=== PATIENT | male | born 1965 | race Caucasian/White ===

== ENCOUNTER 2021-10-04 18:41 | Inpatient (IN) | payer BC ==
[~2021-10-04] VITALS: Ht 190.5 cm; Wt 67.9 kg
[2021-10-04 19:18] LABS: BASOPHILS % (AUTO) 0.8 % (0-1); EOSINOPHILS # (AUTO) 0.2 X10'3 (0-0.9); EOSINOPHILS % (AUTO) 3.5 % (0-6); HEMATOCRIT 36.3 % (42.0-52.0); HEMOGLOBIN 12.3 g/dl (14.0-17.9); LYMPHOCYTES # (AUTO) 2.6 X10'3 (1.1-4.8); LYMPHOCYTES % (AUTO) 44.4 % (21-51); MEAN CORPUSCULAR VOLUME 96.9 FL (78-98); MEAN PLATELET VOLUME 7.7 FL (7.4-10.4); MONOCYTES # (AUTO) 0.4 X10'3 (0-0.9); MONOCYTES % (AUTO) 6.7 % (2-12); NEUTROPHILS # (AUTO) 2.6 X10'3 (1.8-7.7); NEUTROPHILS % (AUTO) 44.6 % (42-75); PLATELET COUNT 238 X10'3 (140-440); RED BLOOD COUNT 3.74 X10'6 (4.70-6.10); RED CELL DISTRIBUTION WIDTH 13.5 % (11.5-14.5); WHITE BLOOD COUNT 5.8 X10'3 (4.5-11.0)
[2021-10-04 19:33] LABS: ALANINE AMINOTRANSFERASE 34 U/L (12-78); ALBUMIN 3.9 G/DL (3.4-5.0); ALBUMIN/GLOBULIN RATIO 1.3 (1.1-1.5); ALKALINE PHOSPHATASE 43 IU/L (46-116); ANION GAP 14 (8-16); ASPARTATE AMINO TRANSFERASE 20 U/L (10-37); BILIRUBIN,TOTAL 0.8 MG/DL (0.1-1.0); BLOOD UREA NITROGEN 16 MG/DL (7-18); BUN/CREATININE RATIO 12.8 (5.4-32.0); CALCIUM 8.4 MG/DL (8.5-10.1); CHLORIDE 103 MMOL/L (99-107); CREATININE 1.25 MG/DL (0.60-1.10); GLUCOSE 174 MG/DL (70-104); LIPASE 153 U/L (73-393); POTASSIUM 3.7 MMOL/L (3.5-5.1); SODIUM 138 MMOL/L (135-145); eGFR 59 ML/MIN
[2021-10-04] MEDS ORDERED: iohexol 300mg/ml 100ml inj. ONE (20:34)
[2021-10-04] MEDS ORDERED: iohexol 350MG/ML 100ml bottle IV ONE (20:38)
[2021-10-04] MEDS ORDERED: morphine 4 MG/ML inj SYRINge IV ONE (21:10)
--- NOTE | 2021-10-04 22:38 | NUR ---
Tech sat patient up for COVID test and he had a syncopal episode, Dr. Pickett was advised and blood transfusion is being ordered.
[2021-10-04 22:48] LABS: BASOPHILS % (AUTO) 0.2 % (0-1); EOSINOPHILS % (AUTO) 0.1 % (0-6); HEMATOCRIT 30.3 % (42.0-52.0); HEMOGLOBIN 10.1 g/dl (14.0-17.9); LYMPHOCYTES # (AUTO) 1.2 X10'3 (1.1-4.8); LYMPHOCYTES % (AUTO) 6.5 % (21-51); MEAN CORPUSCULAR HEMOGLOBIN 32.3 PG (27.0-31.0); MEAN CORPUSCULAR HGB CONC 33.4 g/dL (33.0-36.5); MEAN CORPUSCULAR VOLUME 96.7 FL (78-98); MEAN PLATELET VOLUME 7.7 FL (7.4-10.4); MONOCYTES # (AUTO) 0.8 X10'3 (0-0.9); MONOCYTES % (AUTO) 4.4 % (2-12); NEUTROPHILS # (AUTO) 15.9 X10'3 (1.8-7.7); NEUTROPHILS % (AUTO) 88.8 % (42-75); PLATELET COUNT 183 X10'3 (140-440); RED BLOOD COUNT 3.13 X10'6 (4.70-6.10); RED CELL DISTRIBUTION WIDTH 13.5 % (11.5-14.5); WHITE BLOOD COUNT 17.8 X10'3 (4.5-11.0)
[2021-10-04 23:31] VITALS: BP 87/55
[2021-10-04 23:46] VITALS: BP 76/51
[2021-10-05] VITALS (26 sets, daily range): BP systolic 67–129; BP diastolic 43–85
[2021-10-05] MEDS ORDERED: tranexamic acid 100mg/ml inj. IV ONE (01:20)
[2021-10-05] MEDS ORDERED: ceFOXitin 2GM-NS 100mL ADDvant 100 ML IV ONE (01:20)
[2021-10-05] MEDS ORDERED: NORepinephrine 8 MG in NS 250 ML BAG (32 mcg/ml) IV ONE (01:23)
[2021-10-05] MEDS ORDERED: sevoflurane 250ml liquid IH ONE (01:23)
[2021-10-05] MEDS ORDERED: tranexamic acid 1gm/0.7% sal. 100 ML IV ONE (01:25)
--- NOTE | 2021-10-05 01:25 | NUR ---
Patient taken to the OR for an exploratory LAP per OR documentation. Patient off unit.
[2021-10-05] MEDS ORDERED: midazolam 1 mg/ML 2ml injection ONE (01:27)
[2021-10-05] MEDS ORDERED: fentaNYL /PF 50mcg/ml 5ml ampule ONE (01:27)
[2021-10-05] MEDS ORDERED: ePHEDrine 50MG/ML INJ. ONE (01:27)
[2021-10-05 01:37] LABS: APTT 24 SECONDS (22-32)
[2021-10-05] MEDS ORDERED: ceFOXitin 2GM-NS 50mL ADDVANT. 50 ML IV ONE (02:01)
[2021-10-05] MEDS ORDERED: morphine 4 MG/ML inj SYRINge IV PRN (02:25)
[2021-10-05] MEDS ORDERED: morphine 2 MG/ML inj. syringe IV PRN (02:25)
[2021-10-05] MEDS ORDERED: magnesium 4gm in 100ml NS 100 ML IV PRN (02:25)
[2021-10-05] MEDS ORDERED: magnesium hydroxide 30ml (MOM) UD suspension PO PRN (02:25)
[2021-10-05] MEDS ORDERED: acetaminophen 325mg tablet PO PRN ×2 (02:25)
[2021-10-05] MEDS ORDERED: ondansetron/PF 4mg/2ml inj IV PRN (02:25)
[2021-10-05] MEDS ORDERED: potassium Cl 20 mEq SR tablet PO PRN ×2 (02:25)
[2021-10-05] MEDS ORDERED: rocuronium 10mg/ml inj IV ONE ×2 (03:35)
[2021-10-05] MEDS ORDERED: propofol inj 20 ML IV ONE (03:36)
[2021-10-05] MEDS ORDERED: glycopyrrolate 0.2mg/ml inj ONE (03:36)
[2021-10-05] MEDS ORDERED: neostigmine methylsulfate 1 MG/ML 10ml vial ONE (03:36)
[2021-10-05] MEDS ORDERED: fentaNYL/PF 50MCG/1 ML 2ML syringe ONE (03:52)
[2021-10-05] MEDS ORDERED: HYDROmorph./NS 0.2 mg/ml CADD 100 ML IV SCH (04:00)
[2021-10-05] MEDS ORDERED: naloxone 0.4 mg/ml inj IV PRN (04:00)
[2021-10-05] MEDS ORDERED: potassium CL 20mEq in D5-1/2NS 1,000 ML IV SCH (04:00)
--- NOTE | 2021-10-05 04:15 | NUR ---
Received report from DASHBOARD DEVELOPER. Patients HR in 120s sinus tach, BP 105/60. Incision with ABD in place, mild serosanguineous drainage noted. Patient complaining of severe pain to abdomen. Bowel sounds auscultated. Will continue to monitor, will administer pain medication as ordered by MD.
[2021-10-05] MEDS: HYDROmorph./NS 0.2 mg/ml CADD 100 ML IV SCH ×7 (04:48→17:00)
--- NOTE | 2021-10-05 06:25 | NUR ---
Problems reprioritized. Patient report given, questions answered & plan of care reviewed with Usman Alba.
[2021-10-05] MEDS: NORepinephrine 8mg/ 250ml NS 250 ML IV SCH (06:35)
[2021-10-05 07:40] LABS: BASOPHILS % (AUTO) 0 % (0-1); EOSINOPHILS % (AUTO) 0.1 % (0-6); HEMATOCRIT 32.3 % (42.0-52.0); HEMOGLOBIN 10.9 g/dl (14.0-17.9); LYMPHOCYTES # (AUTO) 0.7 X10'3 (1.1-4.8); LYMPHOCYTES % (AUTO) 3.4 % (21-51); MEAN CORPUSCULAR HEMOGLOBIN 30.8 PG (27.0-31.0); MEAN CORPUSCULAR HGB CONC 33.9 g/dL (33.0-36.5); MEAN CORPUSCULAR VOLUME 90.8 FL (78-98); MONOCYTES # (AUTO) 1.7 X10'3 (0-0.9); MONOCYTES % (AUTO) 8.3 % (2-12); NEUTROPHILS % (AUTO) 88.2 % (42-75); PLATELET COUNT 185 X10'3 (140-440); RED BLOOD COUNT 3.55 X10'6 (4.70-6.10); RED CELL DISTRIBUTION WIDTH 15.7 % (11.5-14.5); WHITE BLOOD COUNT 20.4 X10'3 (4.5-11.0)
[2021-10-05 07:53] LABS: ALANINE AMINOTRANSFERASE 22 U/L (12-78); ALBUMIN 3.1 G/DL (3.4-5.0); ALBUMIN/GLOBULIN RATIO 1.7 (1.1-1.5); ANION GAP 10 (8-16); ASPARTATE AMINO TRANSFERASE 14 U/L (10-37); BILIRUBIN,TOTAL 1.2 MG/DL (0.1-1.0); BLOOD UREA NITROGEN 15 MG/DL (7-18); BUN/CREATININE RATIO 13.8 (5.4-32.0); CALCIUM 6.9 MG/DL (8.5-10.1); CHLORIDE 111 MMOL/L (99-107); CREATININE 1.09 MG/DL (0.60-1.10); GLUCOSE 235 MG/DL (70-104); POTASSIUM 5.8 MMOL/L (3.5-5.1); SODIUM 139 MMOL/L (135-145); TOTAL PROTEIN 4.9 G/DL (6.4-8.2); eGFR 69 ML/MIN
[2021-10-05 08:22] LABS: ALKALINE PHOSPHATASE 30 IU/L (46-116)
[2021-10-05] MEDS ORDERED: CALCIUM GLUC 1gm/50ml NACL,iso 50 ML IV ONE (08:25)
[2021-10-05] MEDS ORDERED: TURM538C PO (08:58)
[2021-10-05] MEDS: K and/or MAG REPLACEMENT MC SCH (08:58)
[2021-10-05] MEDS ORDERED: GARL100T PO (08:58)
[2021-10-05] MEDS ORDERED: ASCO500C17 PO (08:58)
[2021-10-05] MEDS ORDERED: CRAN500C4 PO (08:58)
[2021-10-05] MEDS ORDERED: ALBU8.5H17 INH (08:58)
[2021-10-05] MEDS ORDERED: LOSA100T57 PO (08:58)
[2021-10-05] MEDS ORDERED: CHOL100017 PO (08:58)
[2021-10-05] MEDS ORDERED: AMLO5TAB16 PO (08:58)
[2021-10-05] MEDS: ceFOXitin inj 1,000 MG in normal saline 100ml IV soln 100 ML IV SCH ×2 (09:16→15:45)
[2021-10-05 09:19] LABS: HEMOGLOBIN A1C 5.2 % (4.5-6.2)
[2021-10-05 09:21] LABS: MAGNESIUM 1.5 MG/DL (1.5-2.4)
[2021-10-05 10:04] LABS: ISTAT K 4.7 mmol/L (3.5-5.1)
[2021-10-05 10:05] LABS: ISTAT CREATININE 0.9 mg/dL (0.8-1.3); ISTAT IONIZED CALCIUM 1.11 mmol/L (1.03-1.32); POC BUN/CREATININE RATIO 16.7 (5.4-32.0)
[2021-10-05 10:06] LABS: ISTAT HGB 7.5 g/dl (14.0-18.0)
[2021-10-05] MEDS ORDERED: albuterol 2.5 MG/3 ML nebule NEB PRN (11:45)
--- NOTE | 2021-10-05 12:51 | NUR ---
1000- critical care rounds- CT with contrast to chest abdomen pelvis to reevaluate abscess/ persistent low grade fever. Change midodrine to PRN.
--- NOTE | 2021-10-05 12:53 | NUR ---
1130- Discussion between MD and nurse with patient regarding her wishes on further aggressive care, patient expressing herself through nodding of head. SABASnoaimee name, year, self. Shakes head no to wanting further aggressive care, wants the tube out (using hand signals of pulling tube), emphatically nods head when asked if wants the tube out even though it could lead to her . Nods head yes to, are you just tired of all of it. MD still wants CT of abdomen to just check on status of abscess.
[2021-10-05] MEDS: normal saline 1000ml 1,000 ML IV SCH ×2 (13:10→22:37)
--- NOTE | 2021-10-05 13:17 | NUR ---
1200- On way to CT patient expressing she doesnt want to have the test. Keeps pointing up to ceiling, shaking head no. After being placed on CT table, patient kept taking arms of straps, while going into CT tube, patient pulled arms out and was pounding on CT tube, pulling at the sides. Shook head no when asked if she would do the CT. CT cancelled, on way into elevator patient was grabbing over the side of the rails trying to get to elevator doors. Explained to her that we were going back up to her room. 1230- Upon arriving back to room, nursing had discussion with patient regarding dialysis. Patient does not want dialysis. Understands that her kidneys are not functioning. Relayed information to MD. Discussion with family to ensue. Dialysis nurse notified Dr Cruz of no dialysis today upon patient refusal. Addendum: 10/05/21 at 1646 by Usman Hernandez RN disregard note. wrong patient.
[2021-10-05] MEDS: pantoprazole 40mg Tablet.DR PO SCH (14:48)
[2021-10-05] MEDS ORDERED: albumin (Human) 5% 250ml 250 ML IV ONE ×2 (15:20)
--- NOTE | 2021-10-05 16:56 | NUR ---
1000- critical care rounds- reported K 5.8, calcium of 6.9, mild temp. Calcium gluconate ordered and IVF changed to NS @ 100.
--- NOTE | 2021-10-05 16:57 | NUR ---
1500- Dr Mcelroy rounds- ok for sips and chips, PT eval tomorrow, change dressing daily and PRN soiling, check CVP if less than 12 give 500cc of 5% albumin. Drainage from MELINA is sanguineous, reported amount to . 1530- CVP 3, 500 of 5% albumin given. BP 123/61, CVP up to 7, levo off.
[2021-10-05] MEDS: losartan 50mg tablet PO SCH (21:00)
[2021-10-06] VITALS (33 sets, daily range): BP systolic 119–167; BP diastolic 73–92
[2021-10-06 03:18] LABS: BASOPHILS % (AUTO) 0.1 % (0-1); EOSINOPHILS % (AUTO) 0 % (0-6); HEMOGLOBIN 7.4 g/dl (14.0-17.9); LYMPHOCYTES % (AUTO) 11.5 % (21-51); MEAN CORPUSCULAR HEMOGLOBIN 31.5 PG (27.0-31.0); MEAN CORPUSCULAR VOLUME 89.9 FL (78-98); MEAN PLATELET VOLUME 7.9 FL (7.4-10.4); MONOCYTES # (AUTO) 1.1 X10'3 (0-0.9); MONOCYTES % (AUTO) 12.3 % (2-12); NEUTROPHILS # (AUTO) 6.9 X10'3 (1.8-7.7); NEUTROPHILS % (AUTO) 76.1 % (42-75); PLATELET COUNT 114 X10'3 (140-440); RED BLOOD COUNT 2.36 X10'6 (4.70-6.10); RED CELL DISTRIBUTION WIDTH 16.3 % (11.5-14.5); WHITE BLOOD COUNT 9.1 X10'3 (4.5-11.0)
[2021-10-06 03:29] LABS: APTT 30 SECONDS (22-32)
[2021-10-06 03:30] LABS: HEMATOCRIT 21.3 % (42.0-52.0)
[2021-10-06 03:34] LABS: ALBUMIN 2.8 G/DL (3.4-5.0); ANION GAP 8 (8-16); BLOOD UREA NITROGEN 16 MG/DL (7-18); CALCIUM 7.2 MG/DL (8.5-10.1); CHLORIDE 112 MMOL/L (99-107); CREATININE 0.94 MG/DL (0.60-1.10); GLUCOSE 136 MG/DL (70-104); MAGNESIUM 1.7 MG/DL (1.5-2.4); POTASSIUM 4.2 MMOL/L (3.5-5.1); SODIUM 142 MMOL/L (135-145); TOTAL CARBON DIOXIDE 21.7 MMOL/L (24-32); eGFR 82 ML/MIN
--- NOTE | 2021-10-06 04:20 | NUR ---
Dr. Mcelroy notified of H & H, .12/27.3. New ordered received to repeat CBC at 10:00 a.m.
[2021-10-06] MEDS: HYDROmorph./NS 0.2 mg/ml CADD 100 ML IV SCH ×10 (07:00→23:00)
[2021-10-06] MEDS: normal saline 1000ml 1,000 ML IV SCH ×3 (07:00→22:20)
[2021-10-06] MEDS: K and/or MAG REPLACEMENT MC SCH (08:00)
[2021-10-06] MEDS: cholecalciferol (vitamin D3) 1,000 unit (25mcg) tablet PO SCH (08:24)
[2021-10-06] MEDS: ascorbic acid 500mg tablet PO SCH (08:25)
[2021-10-06] MEDS: pantoprazole 40mg Tablet.DR PO SCH (08:25)
[2021-10-06] MEDS: amLODIPine 5mg tablet PO SCH (08:26)
[2021-10-06] MEDS: NORepinephrine 8mg/ 250ml NS 250 ML IV SCH (10:08)
[2021-10-06 10:56] LABS: BASOPHILS % (AUTO) 0.1 % (0-1); EOSINOPHILS % (AUTO) 0 % (0-6); LYMPHOCYTES # (AUTO) 0.8 X10'3 (1.1-4.8); LYMPHOCYTES % (AUTO) 10.4 % (21-51); MEAN CORPUSCULAR HEMOGLOBIN 31.6 PG (27.0-31.0); MEAN CORPUSCULAR HGB CONC 34.9 g/dL (33.0-36.5); MEAN CORPUSCULAR VOLUME 90.6 FL (78-98); MEAN PLATELET VOLUME 7.6 FL (7.4-10.4); MONOCYTES # (AUTO) 0.8 X10'3 (0-0.9); MONOCYTES % (AUTO) 10.4 % (2-12); NEUTROPHILS # (AUTO) 6.4 X10'3 (1.8-7.7); NEUTROPHILS % (AUTO) 79.1 % (42-75); PLATELET COUNT 103 X10'3 (140-440); RED BLOOD COUNT 2.15 X10'6 (4.70-6.10); RED CELL DISTRIBUTION WIDTH 16.2 % (11.5-14.5); WHITE BLOOD COUNT 8.1 X10'3 (4.5-11.0)
[2021-10-06] MEDS ORDERED: CALCIUM GLUC 1gm/50ml NACL,iso 50 ML IV ONE (11:15)
[2021-10-06 11:19] LABS: HEMATOCRIT 19.5 % (42.0-52.0); HEMOGLOBIN 6.8 g/dl (14.0-17.9)
[2021-10-06 19:39] LABS: HEMOGLOBIN 8.4 g/dl (14.0-17.9); MEAN CORPUSCULAR HEMOGLOBIN 31.5 PG (27.0-31.0); MEAN CORPUSCULAR HGB CONC 35.2 g/dL (33.0-36.5); MEAN CORPUSCULAR VOLUME 89.4 FL (78-98); MEAN PLATELET VOLUME 7.4 FL (7.4-10.4); PLATELET COUNT 91 X10'3 (140-440); RED BLOOD COUNT 2.68 X10'6 (4.70-6.10); RED CELL DISTRIBUTION WIDTH 15.6 % (11.5-14.5); WHITE BLOOD COUNT 7.5 X10'3 (4.5-11.0)
[2021-10-06] MEDS: losartan 50mg tablet PO SCH (20:37)
[2021-10-06] MEDS: diatr meglu/diatrizoate 30ml oral sol.-(3 dose) bottle PO SCH (21:00)
[2021-10-06] MEDS ORDERED: Dextrose 10%-water IV solution 1,000 ML IV SCH (21:05)
[2021-10-07] VITALS (27 sets, daily range): BP systolic 125–169; BP diastolic 65–107
[2021-10-07] MEDS: HYDROmorph./NS 0.2 mg/ml CADD 100 ML IV SCH ×12 (01:00→23:00)
[2021-10-07 02:28] LABS: BASOPHILS % (AUTO) 0.3 % (0-1); EOSINOPHILS % (AUTO) 0 % (0-6); HEMATOCRIT 25.2 % (42.0-52.0); HEMOGLOBIN 8.8 g/dl (14.0-17.9); LYMPHOCYTES # (AUTO) 0.9 X10'3 (1.1-4.8); LYMPHOCYTES % (AUTO) 10.2 % (21-51); MEAN CORPUSCULAR HEMOGLOBIN 31.7 PG (27.0-31.0); MEAN CORPUSCULAR HGB CONC 35.1 g/dL (33.0-36.5); MEAN CORPUSCULAR VOLUME 90.3 FL (78-98); MEAN PLATELET VOLUME 7.3 FL (7.4-10.4); MONOCYTES # (AUTO) 0.8 X10'3 (0-0.9); MONOCYTES % (AUTO) 9.1 % (2-12); NEUTROPHILS # (AUTO) 6.9 X10'3 (1.8-7.7); NEUTROPHILS % (AUTO) 80.4 % (42-75); PLATELET COUNT 107 X10'3 (140-440); RED BLOOD COUNT 2.79 X10'6 (4.70-6.10); RED CELL DISTRIBUTION WIDTH 15.7 % (11.5-14.5); WHITE BLOOD COUNT 8.6 X10'3 (4.5-11.0)
[2021-10-07 02:36] LABS: ALBUMIN 2.6 G/DL (3.4-5.0); ANION GAP 7 (8-16); BLOOD UREA NITROGEN 10 MG/DL (7-18); BUN/CREATININE RATIO 11.1 (5.4-32.0); CALCIUM 7.6 MG/DL (8.5-10.1); CHLORIDE 111 MMOL/L (99-107); GLUCOSE 123 MG/DL (70-104); SODIUM 142 MMOL/L (135-145); TOTAL CARBON DIOXIDE 24.5 MMOL/L (24-32); eGFR 87 ML/MIN
[2021-10-07 02:39] LABS: APTT 28 SECONDS (22-32)
[2021-10-07] MEDS: cholecalciferol (vitamin D3) 1,000 unit (25mcg) tablet PO SCH (07:39)
[2021-10-07] MEDS: ascorbic acid 500mg tablet PO SCH (07:39)
[2021-10-07] MEDS: pantoprazole 40mg Tablet.DR PO SCH (07:39)
[2021-10-07] MEDS: amLODIPine 5mg tablet PO SCH (07:40)
[2021-10-07] MEDS: diatr meglu/diatrizoate 30ml oral sol.-(3 dose) bottle PO SCH ×2 (07:40→21:50)
[2021-10-07] MEDS: K and/or MAG REPLACEMENT MC SCH (08:00)
[2021-10-07] MEDS ORDERED: acetaminophen 325mg tablet PO SCH (09:40)
[2021-10-07] MEDS ORDERED: metoprolol tartrate 1mg/ml inj IV PRN (09:45)
[2021-10-07] MEDS ORDERED: cyclobenzaprine 10mg tablet PO SCH ×2 (09:51→16:00)
[2021-10-07] MEDS ORDERED: iohexol 300mg/ml 100ml inj. ONE (10:11)
[2021-10-07] MEDS: cyclobenzaprine 10mg tablet PO SCH ×2 (10:27→16:50)
[2021-10-07] MEDS: dextrose 5%-normal saline 1,000 ML IV SCH ×2 (11:31→23:45)
[2021-10-07] MEDS ORDERED: metoprolol tartrate 1mg/ml inj IV ONE (12:25)
[2021-10-07 12:51] LABS: HEMATOCRIT 31.1 % (42.0-52.0); HEMOGLOBIN 10.7 g/dl (14.0-17.9); MEAN CORPUSCULAR HEMOGLOBIN 31.2 PG (27.0-31.0); MEAN CORPUSCULAR HGB CONC 34.3 g/dL (33.0-36.5); MEAN CORPUSCULAR VOLUME 90.9 FL (78-98); MEAN PLATELET VOLUME 7.5 FL (7.4-10.4); PLATELET COUNT 147 X10'3 (140-440); RED BLOOD COUNT 3.42 X10'6 (4.70-6.10); WHITE BLOOD COUNT 12.3 X10'3 (4.5-11.0)
[2021-10-07] MEDS: normal saline 1000ml 1,000 ML IV SCH ×2 (13:00→23:00)
[2021-10-07] MEDS ORDERED: LORazepam 2 mg/ml vial IV PRN (13:30)
[2021-10-07] MEDS: NORepinephrine 8mg/ 250ml NS 250 ML IV SCH (13:41)
[2021-10-07] MEDS ORDERED: hydrALAZINE 20mg/ml inj. IV PRN (15:35)
[2021-10-07] MEDS: acetaminophen 325mg tablet PO SCH (16:00)
[2021-10-07] MEDS ORDERED: labetalol 20mg/4ml (5mg/ml) syringe IV SCH (16:34)
[2021-10-07] MEDS: CADD PCA waste documentation MC PRN (18:48)
[2021-10-07 19:12] LABS: HEMATOCRIT 32.4 % (42.0-52.0); MEAN CORPUSCULAR HEMOGLOBIN 30.9 PG (27.0-31.0); MEAN CORPUSCULAR HGB CONC 34.1 g/dL (33.0-36.5); MEAN CORPUSCULAR VOLUME 90.6 FL (78-98); MEAN PLATELET VOLUME 7.6 FL (7.4-10.4); PLATELET COUNT 165 X10'3 (140-440); RED BLOOD COUNT 3.57 X10'6 (4.70-6.10); RED CELL DISTRIBUTION WIDTH 15.5 % (11.5-14.5)
[2021-10-07] MEDS: losartan 50mg tablet PO SCH (21:50)
[2021-10-08] VITALS (23 sets, daily range): BP systolic 89–161; BP diastolic 75–98
[2021-10-08] MEDS: HYDROmorph./NS 0.2 mg/ml CADD 100 ML IV SCH ×12 (01:00→23:00)
[2021-10-08] MEDS: dextrose 5%-normal saline 1,000 ML IV SCH ×2 (01:43→14:40)
[2021-10-08 02:39] LABS: BASOPHILS % (AUTO) 0.1 % (0-1); EOSINOPHILS % (AUTO) 0.1 % (0-6); HEMATOCRIT 30.8 % (42.0-52.0); HEMOGLOBIN 10.6 g/dl (14.0-17.9); LYMPHOCYTES # (AUTO) 1.2 X10'3 (1.1-4.8); LYMPHOCYTES % (AUTO) 10.4 % (21-51); MEAN CORPUSCULAR HGB CONC 34.3 g/dL (33.0-36.5); MEAN CORPUSCULAR VOLUME 90.2 FL (78-98); MEAN PLATELET VOLUME 7.5 FL (7.4-10.4); MONOCYTES # (AUTO) 0.7 X10'3 (0-0.9); MONOCYTES % (AUTO) 6.6 % (2-12); NEUTROPHILS # (AUTO) 9.2 X10'3 (1.8-7.7); NEUTROPHILS % (AUTO) 82.8 % (42-75); PLATELET COUNT 172 X10'3 (140-440); RED BLOOD COUNT 3.41 X10'6 (4.70-6.10); RED CELL DISTRIBUTION WIDTH 15.3 % (11.5-14.5); WHITE BLOOD COUNT 11.2 X10'3 (4.5-11.0)
[2021-10-08 02:53] LABS: APTT 26 SECONDS (22-32)
[2021-10-08 02:54] LABS: ALBUMIN 2.2 G/DL (3.4-5.0); ANION GAP 7 (8-16); BLOOD UREA NITROGEN 21 MG/DL (7-18); BUN/CREATININE RATIO 25.6 (5.4-32.0); CALCIUM 7.7 MG/DL (8.5-10.1); CHLORIDE 110 MMOL/L (99-107); CREATININE 0.82 MG/DL (0.60-1.10); GLUCOSE 143 MG/DL (70-104); POTASSIUM 3.8 MMOL/L (3.5-5.1); SODIUM 142 MMOL/L (135-145); TOTAL CARBON DIOXIDE 25.5 MMOL/L (24-32); eGFR > 90 ML/MIN
[2021-10-08] MEDS: ascorbic acid 500mg tablet PO SCH (07:55)
[2021-10-08] MEDS: cholecalciferol (vitamin D3) 1,000 unit (25mcg) tablet PO SCH (07:55)
[2021-10-08] MEDS: pantoprazole 40mg Tablet.DR PO SCH (07:55)
[2021-10-08] MEDS: acetaminophen 325mg tablet PO SCH ×3 (07:56→16:00)
[2021-10-08] MEDS: amLODIPine 5mg tablet PO SCH (07:57)
[2021-10-08] MEDS: labetalol 20mg/4ml (5mg/ml) syringe IV PRN ×2 (07:57→13:51)
[2021-10-08] MEDS: cyclobenzaprine 10mg tablet PO SCH ×2 (08:00)
--- NOTE | 2021-10-08 19:07 | NUR ---
Patient in room ICU 2041. I have received report from Zaina WHITEHEAD and had the opportunity to ask questions and assume patient care.
[2021-10-08] MEDS: ondansetron/PF 4mg/2ml inj IV PRN (20:50)
[2021-10-08] MEDS: losartan 50mg tablet PO SCH (22:59)
--- NOTE | 2021-10-08 23:00 | NUR ---
Pt unable to void after several attempts. Bladder scanned f/550cc urine. Straight cathed f/525cc clear, yellow urine.
[2021-10-09] VITALS (7 sets, daily range): BP systolic 123–169; BP diastolic 78–97
[2021-10-09] MEDS: HYDROmorph./NS 0.2 mg/ml CADD 100 ML IV SCH ×3 (01:00→05:00)
--- NOTE | 2021-10-09 01:00 | NUR ---
Problems reprioritized. Patient report given, questions answered & plan of care reviewed with Cassie WHITEHEAD.
[2021-10-09] MEDS: dextrose 5%-normal saline 1,000 ML IV SCH ×2 (03:17→16:41)
--- NOTE | 2021-10-09 06:32 | NUR ---
Patient in room PCU 3010. I have received report from Cassie WHITEHEAD and had the opportunity to ask questions and assume patient care.
[2021-10-09 07:03] LABS: BASOPHILS % (AUTO) 0 % (0-1); EOSINOPHILS # (AUTO) 0.2 X10'3 (0-0.9); EOSINOPHILS % (AUTO) 2.6 % (0-6); HEMATOCRIT 28.5 % (42.0-52.0); HEMOGLOBIN 10.1 g/dl (14.0-17.9); LYMPHOCYTES # (AUTO) 0.7 X10'3 (1.1-4.8); LYMPHOCYTES % (AUTO) 9.9 % (21-51); MEAN CORPUSCULAR HEMOGLOBIN 32.3 PG (27.0-31.0); MEAN CORPUSCULAR HGB CONC 35.5 g/dL (33.0-36.5); MEAN CORPUSCULAR VOLUME 90.8 FL (78-98); MEAN PLATELET VOLUME 7.2 FL (7.4-10.4); MONOCYTES # (AUTO) 0.6 X10'3 (0-0.9); NEUTROPHILS # (AUTO) 5.9 X10'3 (1.8-7.7); NEUTROPHILS % (AUTO) 79.5 % (42-75); PLATELET COUNT 186 X10'3 (140-440); RED BLOOD COUNT 3.14 X10'6 (4.70-6.10); RED CELL DISTRIBUTION WIDTH 15.4 % (11.5-14.5); WHITE BLOOD COUNT 7.4 X10'3 (4.5-11.0)
[2021-10-09 07:07] LABS: ALBUMIN 2.3 G/DL (3.4-5.0); ANION GAP 7 (8-16); APTT 23 SECONDS (22-32); BLOOD UREA NITROGEN 23 MG/DL (7-18); CALCIUM 7.8 MG/DL (8.5-10.1); CHLORIDE 109 MMOL/L (99-107); CREATININE 0.82 MG/DL (0.60-1.10); GLUCOSE 139 MG/DL (70-104); POTASSIUM 3.5 MMOL/L (3.5-5.1); SODIUM 141 MMOL/L (135-145); TOTAL CARBON DIOXIDE 24.8 MMOL/L (24-32); eGFR > 90 ML/MIN
[2021-10-09] MEDS: cholecalciferol (vitamin D3) 1,000 unit (25mcg) tablet PO SCH (09:22)
[2021-10-09] MEDS: pantoprazole 40mg Tablet.DR PO SCH (09:22)
[2021-10-09] MEDS: ondansetron/PF 4mg/2ml inj IV PRN (09:22)
[2021-10-09] MEDS: ascorbic acid 500mg tablet PO SCH (09:22)
[2021-10-09] MEDS: amLODIPine 5mg tablet PO SCH (09:23)
[2021-10-09] MEDS: acetaminophen 325mg tablet PO SCH ×3 (09:23→16:00)
[2021-10-09] MEDS ORDERED: LIDOcaine 2% 10ml TOPICAL JELLY (Urojet) TP ONE (10:50)
--- NOTE | 2021-10-09 12:02 | NUR ---
patient's bladder scan showed 560ml, updated Dr. Crockett and got an order to reinsert gentile catheter. patient requested to give him more time till he can void on his own. will continue to monitor.
--- NOTE | 2021-10-09 12:37 | NUR ---
patient still refuses to have the gentile catheter reinserted. encouraged patient to move more so he can have void freely. will continue to monitor patient.
--- NOTE | 2021-10-09 17:20 | NUR ---
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 voided freely, and had a big bowel movement this afternoon. will continue to monitor patient.
[2021-10-09] MEDS ORDERED: acetaminophen 325mg tablet PO PRN (17:30)
[2021-10-09] MEDS ORDERED: oxyCODONE/APAP 10/325mg tablet PO PRN (17:30)
[2021-10-09] MEDS ORDERED: oxyCODONE/APAP 5-325mg tablet PO PRN (17:30)
[2021-10-09] MEDS: CADD PCA waste documentation MC PRN (19:10)
[2021-10-09] MEDS: losartan 50mg tablet PO SCH (21:05)
[2021-10-10 02:00] VITALS: BP 128/83
[2021-10-10] MEDS: dextrose 5%-normal saline 1,000 ML IV SCH (05:53)
[2021-10-10 06:00] VITALS: BP 142/86
--- NOTE | 2021-10-10 06:40 | NUR ---
Problems reprioritized. Patient report given, questions answered & plan of care reviewed with JOSE MANUEL.
[2021-10-10 07:11] LABS: BASOPHILS % (AUTO) 0.1 % (0-1); EOSINOPHILS # (AUTO) 0.3 X10'3 (0-0.9); HEMATOCRIT 24.9 % (42.0-52.0); HEMOGLOBIN 8.6 g/dl (14.0-17.9); LYMPHOCYTES # (AUTO) 0.6 X10'3 (1.1-4.8); LYMPHOCYTES % (AUTO) 11.1 % (21-51); MEAN CORPUSCULAR HEMOGLOBIN 31.6 PG (27.0-31.0); MEAN CORPUSCULAR HGB CONC 34.8 g/dL (33.0-36.5); MONOCYTES # (AUTO) 0.6 X10'3 (0-0.9); MONOCYTES % (AUTO) 10.3 % (2-12); NEUTROPHILS # (AUTO) 4.2 X10'3 (1.8-7.7); NEUTROPHILS % (AUTO) 73.5 % (42-75); PLATELET COUNT 172 X10'3 (140-440); RED BLOOD COUNT 2.73 X10'6 (4.70-6.10); RED CELL DISTRIBUTION WIDTH 15.3 % (11.5-14.5); WHITE BLOOD COUNT 5.7 X10'3 (4.5-11.0)
[2021-10-10 07:14] LABS: APTT 25 SECONDS (22-32)
[2021-10-10 07:29] LABS: ANION GAP 8 (8-16); BLOOD UREA NITROGEN 18 MG/DL (7-18); BUN/CREATININE RATIO 21.2 (5.4-32.0); CALCIUM 7.5 MG/DL (8.5-10.1); CHLORIDE 110 MMOL/L (99-107); CREATININE 0.85 MG/DL (0.60-1.10); GLUCOSE 117 MG/DL (70-104); MAGNESIUM 1.8 MG/DL (1.5-2.4); POTASSIUM 3.5 MMOL/L (3.5-5.1); SODIUM 142 MMOL/L (135-145); TOTAL CARBON DIOXIDE 24.3 MMOL/L (24-32); eGFR > 90 ML/MIN
[2021-10-10] MEDS: acetaminophen 325mg tablet PO SCH ×3 (08:00→16:00)
[2021-10-10] MEDS: pantoprazole 40mg Tablet.DR PO SCH (08:03)
[2021-10-10] MEDS: cholecalciferol (vitamin D3) 1,000 unit (25mcg) tablet PO SCH (08:06)
[2021-10-10] MEDS: ascorbic acid 500mg tablet PO SCH (08:06)
[2021-10-10] MEDS: amLODIPine 5mg tablet PO SCH (08:07)
--- NOTE | 2021-10-10 09:34 | NUR ---
Initial: Pt admitted w/ hemoperitoneum, underwent exploratory laparotomy w/ control of peripancreatic bleed 10/05 per EMR. Pt advanced to Clear liquid diet last night 10/09, pending PO intake. Recommend advancing to Regular diet as medically indicated and consider Zackary smoothies BID once diet advanced to assist w/ wound healing. Currently receiving D5NS at 80ml/hr providing 326kcals/day. LBM 10/09. Limited nutrition interventions at this time, will continue to monitor. Recs: 1. Advance to Regular diet as medically indicated 2. Zackary Smoothies BID once diet advanced 3. Monitor need for additional ONS pending PO 4. Bowel care per rx 5. Weekly wts Addendum: 10/10/21 at [address] Amended: Links added.
[2021-10-10 11:00] VITALS: BP 134/86
[2021-10-10 15:00] VITALS: BP_SYST 139; BP_SYST 149; BP_DIAS 78; BP_DIAS 82
[2021-10-10 18:00] VITALS: BP 134/81
--- NOTE | 2021-10-10 18:10 | NUR ---
I have received report from Maria Luisa WHITEHEAD.
[2021-10-10 22:00] VITALS: BP 135/81
[2021-10-10] MEDS: losartan 50mg tablet PO SCH (22:28)
[2021-10-11 05:30] VITALS: BP 113/81
--- NOTE | 2021-10-11 05:30 | NUR ---
Informed that pt's HR went up to 140. Checked on patient, he had just been to the bathroom and changed his gown due to mau site leaking. VS taken :97.6 oral, 100,18,113/81,92RA, 1-2/10 for pain. Emptied MAU and changed dressing to MAU site. Guestimate around 20cc drainage on gown/dry flow and emptied for another 100cc.
[2021-10-11 06:00] VITALS: BP 123/81
[2021-10-11 06:53] LABS: BASOPHILS % (AUTO) 0.3 % (0-1); EOSINOPHILS # (AUTO) 0.4 X10'3 (0-0.9); EOSINOPHILS % (AUTO) 4.8 % (0-6); HEMATOCRIT 26.8 % (42.0-52.0); HEMOGLOBIN 9.2 g/dl (14.0-17.9); LYMPHOCYTES # (AUTO) 0.9 X10'3 (1.1-4.8); LYMPHOCYTES % (AUTO) 11.2 % (21-51); MEAN CORPUSCULAR HEMOGLOBIN 31.6 PG (27.0-31.0); MEAN CORPUSCULAR HGB CONC 34.4 g/dL (33.0-36.5); MEAN CORPUSCULAR VOLUME 91.7 FL (78-98); MEAN PLATELET VOLUME 7.3 FL (7.4-10.4); MONOCYTES # (AUTO) 0.8 X10'3 (0-0.9); MONOCYTES % (AUTO) 10.2 % (2-12); NEUTROPHILS # (AUTO) 6.1 X10'3 (1.8-7.7); NEUTROPHILS % (AUTO) 73.5 % (42-75); PLATELET COUNT 201 X10'3 (140-440); RED BLOOD COUNT 2.92 X10'6 (4.70-6.10); RED CELL DISTRIBUTION WIDTH 15.2 % (11.5-14.5); WHITE BLOOD COUNT 8.3 X10'3 (4.5-11.0)
[2021-10-11 07:03] LABS: ALBUMIN 2.1 G/DL (3.4-5.0); ANION GAP 9 (8-16); BLOOD UREA NITROGEN 10 MG/DL (7-18); BUN/CREATININE RATIO 11.2 (5.4-32.0); CALCIUM 7.5 MG/DL (8.5-10.1); CHLORIDE 104 MMOL/L (99-107); CREATININE 0.89 MG/DL (0.60-1.10); GLUCOSE 108 MG/DL (70-104); POTASSIUM 3.1 MMOL/L (3.5-5.1); SODIUM 137 MMOL/L (135-145); TOTAL CARBON DIOXIDE 24.3 MMOL/L (24-32); eGFR 88 ML/MIN
--- NOTE | 2021-10-11 07:05 | NUR ---
Patient report given to Devin WHITEHEAD.
[2021-10-11 07:20] LABS: APTT 27 SECONDS (22-32)
[2021-10-11] MEDS: acetaminophen 325mg tablet PO SCH ×3 (08:00→16:00)
[2021-10-11] MEDS: ascorbic acid 500mg tablet PO SCH (08:02)
[2021-10-11] MEDS: pantoprazole 40mg Tablet.DR PO SCH (08:02)
[2021-10-11] MEDS: cholecalciferol (vitamin D3) 1,000 unit (25mcg) tablet PO SCH (08:02)
[2021-10-11] MEDS: amLODIPine 5mg tablet PO SCH (08:03)
[2021-10-11 11:00] VITALS: BP 131/78
[2021-10-11 15:00] VITALS: BP 146/96
[2021-10-11 18:00] VITALS: BP 129/86
--- NOTE | 2021-10-11 18:35 | NUR ---
Patient in room PCU 3010. I have received report from CHARLEY Beltran and had the opportunity to ask questions and assume patient care.
[2021-10-11] MEDS: losartan 50mg tablet PO SCH (20:46)
[2021-10-11 22:00] VITALS: BP 117/78
[2021-10-12 02:00] VITALS: BP 113/72
[2021-10-12 06:00] VITALS: BP 117/79
--- NOTE | 2021-10-12 06:34 | NUR ---
Problems reprioritized. Patient report given, questions answered & plan of care reviewed with CHARLEY Beltran.
[2021-10-12 06:49] LABS: BASOPHILS % (AUTO) 0.3 % (0-1); EOSINOPHILS # (AUTO) 0.3 X10'3 (0-0.9); EOSINOPHILS % (AUTO) 4.3 % (0-6); HEMOGLOBIN 9.6 g/dl (14.0-17.9); LYMPHOCYTES # (AUTO) 0.9 X10'3 (1.1-4.8); MEAN CORPUSCULAR HEMOGLOBIN 31.4 PG (27.0-31.0); MEAN CORPUSCULAR HGB CONC 34.4 g/dL (33.0-36.5); MEAN PLATELET VOLUME 7.1 FL (7.4-10.4); MONOCYTES # (AUTO) 0.8 X10'3 (0-0.9); MONOCYTES % (AUTO) 9.8 % (2-12); NEUTROPHILS # (AUTO) 5.8 X10'3 (1.8-7.7); NEUTROPHILS % (AUTO) 73.6 % (42-75); PLATELET COUNT 225 X10'3 (140-440); RED BLOOD COUNT 3.07 X10'6 (4.70-6.10); RED CELL DISTRIBUTION WIDTH 15.2 % (11.5-14.5); WHITE BLOOD COUNT 7.9 X10'3 (4.5-11.0)
[2021-10-12 07:01] LABS: ALBUMIN 2.2 G/DL (3.4-5.0); ANION GAP 9 (8-16); BLOOD UREA NITROGEN 11 MG/DL (7-18); BUN/CREATININE RATIO 12.5 (5.4-32.0); CHLORIDE 105 MMOL/L (99-107); CREATININE 0.88 MG/DL (0.60-1.10); GLUCOSE 112 MG/DL (70-104); POTASSIUM 3.7 MMOL/L (3.5-5.1); SODIUM 139 MMOL/L (135-145); TOTAL CARBON DIOXIDE 25.2 MMOL/L (24-32); eGFR 89 ML/MIN
[2021-10-12 07:06] LABS: APTT 27 SECONDS (22-32)
[2021-10-12] MEDS: acetaminophen 325mg tablet PO SCH ×3 (08:00→16:00)
[2021-10-12] MEDS: amLODIPine 5mg tablet PO SCH (08:21)
[2021-10-12] MEDS: cholecalciferol (vitamin D3) 1,000 unit (25mcg) tablet PO SCH (08:21)
[2021-10-12] MEDS: ascorbic acid 500mg tablet PO SCH (08:21)
[2021-10-12] MEDS: pantoprazole 40mg Tablet.DR PO SCH (08:22)
[2021-10-12 11:00] VITALS: BP 107/78
--- NOTE | 2021-10-12 14:55 | NUR ---
Reassessment: Patient's diet has been advanced to regular and pt eating well with 75-100% PO intake. LBM 10/11. No nutrition intervention implemented at this time. Will continue to follow. Recommendations: 1. Continue regular diet 2. Monitor need for ONS/additional protein 3. Bowel care PRN 4. Weekly scaled weights Addendum: 10/12/21 at [address] Amended: Links added.
== END 2021-10-12 17:00 | disposition home or self-care (01) | DRG 356 ==
LOC: ER 18:42 → UNDOADMIN 10-05 02:27 → ICU 2S 10-05 02:27 → PCU 3S 10-09 02:16
PROVIDERS: ADMIT Internal Medicine Critical Care Medicine; ATTEND Internal Medicine Critical Care Medicine
PROC: 30233N1 Transfusion of Nonautologous Red Blood Cells into Peripheral Vein, Percutaneous Approach (ICD-10-PCS; 2021-10-04)
PROC: B32T1ZZ Computerized Tomography (CT Scan) of Left Pulmonary Artery using Low Osmolar Contrast (ICD-10-PCS; 2021-10-04)
PROC: B3201ZZ Computerized Tomography (CT Scan) of Thoracic Aorta using Low Osmolar Contrast (ICD-10-PCS; 2021-10-04)
PROC: B32S1ZZ Computerized Tomography (CT Scan) of Right Pulmonary Artery using Low Osmolar Contrast (ICD-10-PCS; 2021-10-04)
PROC: B4201ZZ Computerized Tomography (CT Scan) of Abdominal Aorta using Low Osmolar Contrast (ICD-10-PCS; 2021-10-04)
PROC: 02HV33Z Insertion of Infusion Device into Superior Vena Cava, Percutaneous Approach (ICD-10-PCS; 2021-10-04)
PROC: B548ZZA Ultrasonography of Superior Vena Cava, Guidance (ICD-10-PCS; 2021-10-04)
PROC: 0W3H0ZZ Control Bleeding in Retroperitoneum, Open Approach (ICD-10-PCS; principal; 2021-10-05 01:23)
PROC: BW211ZZ Computerized Tomography (CT Scan) of Abdomen and Pelvis using Low Osmolar Contrast (ICD-10-PCS; 2021-10-07)
DX: K66.1 Hemoperitoneum (principal); R57.8 Other shock; D62 Acute posthemorrhagic anemia; K56.7 Ileus, unspecified; D72.829 Elevated white blood cell count, unspecified; Z20.822 Contact with and (suspected) exposure to COVID-19; E83.51 Hypocalcemia; I10 Essential (primary) hypertension; Z79.899 Other long term (current) drug therapy
CPT/HCPCS: 96374; 99285; Z7506; Z7508; 36415; 36430; 71045; 71275; 74174; 74177; 80047; 80048; 80053; 82310; 83036; 83690; 83735; 84484; 85025; 85027; 85610; 85730; 86885; 86900; 86901; 86920; 87081; 87635; 93005; 97110; 97116; 97161; 97530; A4215; A4618; A6402; A7000; C1758; C9803; G0378; J0360; J0610; J0694; J1170; J2250; J2270; J2405; J2704; J2710; J3010; J3490; J7030; J7042; J7120; P9016; P9045; Q9963; Q9967